=== PATIENT | female | born 1955 | race Caucasian/White ===

== ENCOUNTER → 2017-02-10 | Outpatient (CLI) | payer OTHER ==
[~2017-02-10] MED LIST: AUGMENTIN 875 M1 TA1 PO; CLARITIN10 MG PO; FLONASE0.05 MG/AC NS; KETOROLAC10 MG PO; NKHM; Orphenadrine C100 MG PO; PREDNISONE20 MG PO; PROAIR HFA0.09 MG/AC IH; VOLTAREN50 M1 PO
== END | disposition home or self-care (01) ==
LOC: MAMMO 12:56
DX: Z12.31 Encounter for screening mammogram for malignant neoplasm of breast (principal)

== ENCOUNTER 2018-07-20 03:52 | Emergency (ER) | payer OTHER ==
[~2018-07-20] VITALS: Ht 179 cm; Wt 76.2 kg
[~2018-07-20 03:52] MED LIST changes: +IBU800 MG PO
[2018-07-20 03:57] VITALS: BP 163/101
[2018-07-20] MEDS ORDERED: PREDNISONE10 MG PO (05:30)
[2018-07-20] MEDS ORDERED: Orphenadrine C100 MG PO (05:30)
[2018-07-20 05:48] LABS: BILIRUBIN NEGATIVE (NEGATIVE); BLOOD NEGATIVE (NEGATIVE); CLARITY SL CLOUDY (CLEAR); COLOR YELLOW (YELLOW); GLUCOSE NEGATIVE (NEGATIVE); KETONE NEGATIVE (NEGATIVE); LEUKO ESTERASE 1+ (NEGATIVE); NITRITE NEGATIVE (NEGATIVE); SPECIFIC GRAVITY >= 1.030 (1.005-1.030); UROBILINOGEN 0.2 E.U./dl (0.2-1.0)
[2018-07-20 05:57] LABS: BACTERIA TRACE; EPITHELIAL CELLS 15-20; WBC 0-2 wbc/hpf (0-5)
== END 2018-07-20 05:40 | disposition home or self-care (01) ==
LOC: ED 03:52
PROVIDERS: Emergency Medicine Emergency Medical Services
DX: M54.41 Lumbago with sciatica, right side (principal); Z90.710 Acquired absence of both cervix and uterus; X50.1XXA Overexertion from prolonged static or awkward postures, initial encounter; Y93.89 Activity, other specified; Y92.89 Other specified places as the place of occurrence of the external cause; Y99.8 Other external cause status

== ENCOUNTER → 2018-08-20 | Outpatient (CLI) | payer OTHER ==
[~2018-08-20] MED LIST changes: +PREDNISONE10 MG PO; +SEPTDS PO
== END | disposition home or self-care (01) ==
LOC: MRI 07:34
DX: M47.817 Spondylosis without myelopathy or radiculopathy, lumbosacral region (principal)

== ENCOUNTER 2018-10-08 02:01 | Emergency (ER) | payer OTHER ==
[~2018-10-08] VITALS: Wt 76.2 kg
[~2018-10-08 02:01] MED LIST changes: -SEPTDS PO
[2018-10-08 02:02] VITALS: BP 157/95
[2018-10-08 02:15] LABS: BILIRUBIN NEGATIVE (NEGATIVE); BLOOD NEGATIVE (NEGATIVE); CLARITY SL CLOUDY (CLEAR); COLOR YELLOW (YELLOW); GLUCOSE NEGATIVE (NEGATIVE); KETONE NEGATIVE (NEGATIVE); LEUKO ESTERASE NEGATIVE (NEGATIVE); NITRITE NEGATIVE (NEGATIVE); PH 5.5 (5.0-9.0); SPECIFIC GRAVITY >= 1.030 (1.005-1.030); UROBILINOGEN 0.2 E.U./dl (0.2-1.0)
[2018-10-08 02:32] LABS: BACTERIA 1+; EPITHELIAL CELLS 30-35
[2018-10-08] MEDS ORDERED: SEPTDS PO (02:38)
== END 2018-10-08 02:45 | disposition home or self-care (01) ==
LOC: ED 02:01
PROVIDERS: Emergency Medicine
DX: N30.90 Cystitis, unspecified without hematuria (principal); Z79.899 Other long term (current) drug therapy; Z90.710 Acquired absence of both cervix and uterus; Z90.49 Acquired absence of other specified parts of digestive tract

== ENCOUNTER 2019-10-14 23:47 | Inpatient (IN) | payer MEDICARE ==
[~2019-10-14] VITALS: Ht 180.3 cm; Wt 79.1 kg
[~2019-10-14 23:47] MED LIST changes: +SEPTDS PO
[2019-10-14 23:50] VITALS: BP 205/114
[2019-10-15] VITALS (8 sets, daily range): BP systolic 115–168; BP diastolic 72–96
--- NOTE | 2019-10-15 01:35 | NUR ---
A 64, admitted to [facility], under the services of NENO Ren DO with a diagnosis of HYPERTENSIVE CRISIS, HYPERVENTILATION, CHEST PAIN. Chief complaint is SHORTNESS OF BREATH. Patient arrived via stretcher from ER. Monitor applied. Initial assessment completed. Vital signs taken and recorded. NENO REN DO notified of admission to the unit. Orders received. See assessment for past medical history, medications and allergies. Patient and/or family oriented to unit. [facility] visitation policy reviewed. Clothing/patient valuable form completed. MAHSA BARAHONA
--- NOTE | 2019-10-15 02:02 | NUR ---
MED REC UP TO DATE PER PT RECALL. NO HOME MEDS PER PT.
--- NOTE | 2019-10-15 02:43 | NUR ---
'S ANSWERING SERVICE CALLED REGARDING CONSULT. INFORMATION, INCLUDING CALL BACK NUMBER, LEFT WITH SENIOR STAFF ACCOUNTANT.
[2019-10-15 06:28] LABS: BASO # 0.1 10*3/uL (0.0-0.1); BASO % 0.9 % (0.0-1.0); EOS # 0.1 10*3/uL (0.0-0.4); EOS % 1.6 % (1.0-4.0); HEMATOCRIT 44.3 % (37.0-47.0); LYMPH # 2.2 10*3/uL (1.3-4.4); LYMPH % 38.9 % (27.0-41.0); MEAN CELL VOLUME 96.5 fl (81.0-99.0); MEAN CORPUSCULAR HGB 31.8 pg (27.0-31.0); MEAN PLATELET VOLUME 10.9 fl (9.6-12.3); MONO # 0.5 10*3/uL (0.1-1.0); MONO % 9.2 % (3.0-9.0); NEUT # 2.8 10*3/uL (2.3-7.9); NEUT % 49.2 % (47.0-73.0); PLATELET COUNT AUTOMATED 255 10*3/uL (130-400); RED BLOOD COUNT 4.59 10*6/uL (4.10-5.10); RED CELL DISTRI WIDTH 12.2 % (0-14.5); WHITE BLOOD COUNT 5.7 10*3/uL (4.8-10.8)
[2019-10-15 06:56] LABS: BUN 14 mg/dl (7-24); CHLORIDE 107 mmol/L (98-107); CHOLESTEROL 191 mg/dL (<200); CREATININE 0.77 mg/dL (0.55-1.02); FREE T4 0.94 ng/dl (0.76-1.46); HDL CHOLESTEROL 66 mg/dl (40-60); LDL CHOLESTEROL 109 mg/dL (9-159); POTASSIUM 3.8 mmol/L (3.5-5.1); SODIUM 139 mmol/L (136-145); TRIGLYCERIDES 81 mg/dl (<150); VLDL CHOLESTEROL 16 mg/dL (6-40)
[2019-10-15 07:29] LABS: ALBUMIN 3.6 gm/dl (3.1-4.5); ALKALINE PHOSPHATASE 139 U/L (45-117); BUN 16 mg/dl (7-24); CHLORIDE 107 mmol/L (98-107); CREATININE 0.81 mg/dL (0.55-1.02); POTASSIUM 3.8 mmol/L (3.5-5.1); SGOT/AST 23 IU/L (3-35); SGPT/ALT 35 U/L (12-78); SODIUM 142 mmol/L (136-145); TOTAL PROTEIN 6.7 gm/dL (6.4-8.2); TROPONIN I < 0.015 ng/ml (<0.045)
[2019-10-15 07:35] LABS: BASO # 0.1 10*3/uL (0.0-0.1); BASO % 0.9 % (0.0-1.0); EOS # 0.1 10*3/uL (0.0-0.4); EOS % 1.2 % (1.0-4.0); HEMATOCRIT 44.9 % (37.0-47.0); LYMPH % 35.2 % (27.0-41.0); MEAN CELL VOLUME 94.1 fl (81.0-99.0); MEAN CORPUSCULAR HGB 32.1 pg (27.0-31.0); MEAN CORPUSCULAR HGB CONC 34.1 g/dl (33.0-37.0); MEAN PLATELET VOLUME 10.8 fl (9.6-12.3); MONO # 0.6 10*3/uL (0.1-1.0); MONO % 11.2 % (3.0-9.0); NEUT # 2.9 10*3/uL (2.3-7.9); NEUT % 51.3 % (47.0-73.0); PLATELET COUNT AUTOMATED 271 10*3/uL (130-400); RED BLOOD COUNT 4.77 10*6/uL (4.10-5.10); WHITE BLOOD COUNT 5.6 10*3/uL (4.8-10.8)
[2019-10-15 07:53] LABS: ACT PARTIAL THROMBO TIME 27.2 SECONDS (20.0-32.1); INTERNATIONAL NORM RATIO 0.9 (2.0-3.5)
--- NOTE | 2019-10-15 08:45 | NUR ---
PT LYING IN BED GETTING ECHO DONE. NO C/O AT THIS TIME. CALL LIGHT IN REACH. SEE SHIFT ASSESSMENT.
--- NOTE | 2019-10-15 09:02 | NUR ---
SPOKE WITH DR. GIVENS CANCELED STRESS TEST.
--- NOTE | 2019-10-15 09:50 | NUR ---
SITTING UP IN BED. DENIES CHEST PAIN OR SHORTNESS OF BREATH, TOLERATED ROUTINE MED WITH NO PROBLEM. CALL LIGHT IN REACH.
--- NOTE | 2019-10-15 10:00 | NUR ---
SPOKE WITH DR. CRISTEL BARBER TO PUT ECHO BACK IN AWARE PT ALREADY HAD IT.
--- NOTE | 2019-10-15 10:49 | NUR ---
DR. GIVENS ON THE FLOOR TO FILL PT PAPERS OUT FOR FMLA.
--- NOTE | 2019-10-15 12:00 | NUR ---
Tools Programmer in to talk to patient. Patient states lives at home with . There are no steps in the home. Physician: none at present [facility]acy: [facility] Home health services: none Patient's level of ADLs: INDEPENDENT Patient has working utilities: all working DME: none Follow-up physician's appointment after d/c: will be made by hospitalist nurse director upon discharge Does patient want to access PORTAL?: no Discharge plan discussed with patient, she lives at home with she is independent in adls and ambulation, works and drives, she will return home when medically stable and denies any home needs. DEWAYNE GRANT
[2019-10-15 13:23] LABS: VITAMIN D, 25-HYDROXY 28.4 ng/mL (30-100)
[2019-10-15] MEDS ORDERED: ATIVAN1 MG PO (15:56)
[2019-10-15] MEDS ORDERED: LISINOPRIL10 M1 PO (15:56)
[2019-10-15] MEDS ORDERED: VITAMIN D325 MCG PO (16:00)
--- NOTE | 2019-10-15 16:09 | NUR ---
Discharge instructions reviewed with patient/family. Patient receptive and verbalizes understanding. Follow-up care arranged. Written instructions given to patient/family. HEPLOCK REMOVED 2X2 APPLIED. MONITOR REMOVED. PT AMBULATORY OFF THE FLOOR FOR DISCHARGE. JO-ANN ACEVEOD
== END 2019-10-15 16:09 | disposition home or self-care (01) | DRG 206 ==
LOC: ED 23:47 → EDHOLD 10-15 00:56 → 4NE 10-15 00:56
PROVIDERS: Emergency Medicine; Internal Medicine; ADMIT Internal Medicine
DX: M94.0 Chondrocostal junction syndrome [Tietze] (principal); I16.1 Hypertensive emergency; I24.9 Acute ischemic heart disease, unspecified; R06.4 Hyperventilation; F41.0 Panic disorder [episodic paroxysmal anxiety]; F40.240 Claustrophobia; K21.9 Gastro-esophageal reflux disease without esophagitis; R00.2 Palpitations; Z90.49 Acquired absence of other specified parts of digestive tract; Z90.710 Acquired absence of both cervix and uterus; Z79.891 Long term (current) use of opiate analgesic; Z87.891 Personal history of nicotine dependence; Z80.1 Family history of malignant neoplasm of trachea, bronchus and lung; Z83.3 Family history of diabetes mellitus; Z82.49 Family history of ischemic heart disease and other diseases of the circulatory system; Z79.899 Other long term (current) drug therapy

== ENCOUNTER → 2020-02-13 | Outpatient (CLI) | payer MEDICARE ==
[~2020-02-13] MED LIST changes: +ATIVAN1 MG PO; +LISINOPRIL10 M1 PO; +VITAMIN D325 MCG PO
== END | disposition home or self-care (01) ==
LOC: MRI 12:46
PROVIDERS: ATTEND Psychiatry & Neurology Clinical Neurophysiology
DX: G89.29 Other chronic pain (principal); G62.9 Polyneuropathy, unspecified; R20.2 Paresthesia of skin; M54.5 Low back pain

== ENCOUNTER → 2020-02-14 | Outpatient (CLI) | payer MEDICARE | END | disposition home or self-care (01) | LOC: MRI 00:34 | PROVIDERS: ATTEND Psychiatry & Neurology Clinical Neurophysiology | DX: G62.9 Polyneuropathy, unspecified (principal); R20.2 Paresthesia of skin; M54.5 Low back pain; G89.29 Other chronic pain; R29.898 Other symptoms and signs involving the musculoskeletal system; Z91.81 History of falling ==

== ENCOUNTER → 2020-03-19 | Outpatient (CLI) | payer MEDICARE ==
[2020-03-19 10:44] LABS: ALBUMIN 3.8 gm/dl (3.1-4.5); BUN 13 mg/dl (7-24); CHLORIDE 106 mmol/L (98-107); CREATININE 0.79 mg/dL (0.55-1.02); SODIUM 140 mmol/L (136-145)
== END | disposition home or self-care (01) ==
LOC: LAB 10:11 → MRI 11:00
PROVIDERS: ATTEND Psychiatry & Neurology Clinical Neurophysiology
DX: G60.3 Idiopathic progressive neuropathy (principal); R29.898 Other symptoms and signs involving the musculoskeletal system; R94.131 Abnormal electromyogram [EMG]; R26.2 Difficulty in walking, not elsewhere classified

== ENCOUNTER → 2020-11-23 | Outpatient (CLI) | payer MEDICARE ==
[2020-11-23 13:33] LABS: BASO # 0.1 10*3/uL (0.0-0.1); BASO % 0.8 % (0.0-1.0); EOS # 0.1 10*3/uL (0.0-0.4); EOS % 0.8 % (1.0-4.0); HEMATOCRIT 45.1 % (37.0-47.0); LYMPH # 1.6 10*3/uL (1.3-4.4); LYMPH % 25.4 % (27.0-41.0); MEAN CELL VOLUME 96.6 fl (81.0-99.0); MEAN CORPUSCULAR HGB 31.3 pg (27.0-31.0); MEAN CORPUSCULAR HGB CONC 32.4 g/dl (33.0-37.0); MEAN PLATELET VOLUME 10.6 fl (9.6-12.3); MONO # 0.4 10*3/uL (0.1-1.0); MONO % 7.1 % (3.0-9.0); NEUT # 4.1 10*3/uL (2.3-7.9); NEUT % 65.6 % (47.0-73.0); PLATELET COUNT AUTOMATED 309 10*3/uL (130-400); RED BLOOD COUNT 4.67 10*6/uL (4.10-5.10); WHITE BLOOD COUNT 6.2 10*3/uL (4.8-10.8)
[2020-11-23 14:04] LABS: ALBUMIN 3.4 gm/dl (3.1-4.5); BUN 14 mg/dl (7-24); CHLORIDE 107 mmol/L (98-107); POTASSIUM 3.6 mmol/L (3.5-5.1); SODIUM 142 mmol/L (136-145)
[2020-11-23 14:08] LABS: ALKALINE PHOSPHATASE 128 U/L (45-117); CREATININE 0.75 mg/dL (0.55-1.02); SGOT/AST 18 IU/L (3-35); SGPT/ALT 28 U/L (12-78)
== END | disposition home or self-care (01) ==
LOC: LAB 13:01
PROVIDERS: ATTEND Psychiatry & Neurology Neurology
DX: G12.21 Amyotrophic lateral sclerosis (principal)

== ENCOUNTER → 2020-12-29 | Outpatient (CLI) | payer MEDICARE ==
[~2020-12-29] MED LIST changes: +AUGMENTIN 875875 MG PO; +BACLOFEN5 MG PO; +CIPRO500 MG PO; +COLACE100 MG PO; +DITROPAN XL10 MG PO; +HYDROCODONE-AC1 EAC1 PO; +Ipratropium Brom3 ML INH; +NORVASC2.5 MG PO; +RILUTEK50 M1 PO
[2020-12-29 14:32] LABS: BASO # 0.1 10*3/uL (0.0-0.1); EOS % 0.5 % (1.0-4.0); HEMATOCRIT 47.8 % (37.0-47.0); LYMPH # 1.4 10*3/uL (1.3-4.4); LYMPH % 23.1 % (27.0-41.0); MEAN CELL VOLUME 94.7 fl (81.0-99.0); MEAN CORPUSCULAR HGB 30.7 pg (27.0-31.0); MEAN CORPUSCULAR HGB CONC 32.4 g/dl (33.0-37.0); MONO # 0.5 10*3/uL (0.1-1.0); MONO % 7.5 % (3.0-9.0); NEUT # 4.1 10*3/uL (2.3-7.9); NEUT % 67.7 % (47.0-73.0); PLATELET COUNT AUTOMATED 338 10*3/uL (130-400); RED BLOOD COUNT 5.05 10*6/uL (4.10-5.10); RED CELL DISTRI WIDTH 12.7 % (0-14.5)
[2020-12-29 14:59] LABS: ALBUMIN 3.9 gm/dl (3.1-4.5); BUN 14 mg/dl (7-24); CHLORIDE 107 mmol/L (98-107); SODIUM 139 mmol/L (136-145)
[2020-12-29 15:04] LABS: ALKALINE PHOSPHATASE 117 U/L (45-117); CREATININE 0.57 mg/dL (0.55-1.02); SGOT/AST 18 IU/L (3-35); SGPT/ALT 30 U/L (12-78); TOTAL PROTEIN 7.2 gm/dL (6.4-8.2)
== END | disposition home or self-care (01) ==
LOC: LAB 01:38
PROVIDERS: ATTEND Psychiatry & Neurology Neurology
DX: G12.21 Amyotrophic lateral sclerosis (principal)

== ENCOUNTER 2021-01-14 23:02 | Inpatient (IN) | payer MEDICARE ==
[~2021-01-14] VITALS: Ht 177.8 cm; Wt 75.5 kg
[~2021-01-14 23:02] MED LIST changes: -AUGMENTIN 875875 MG PO; -BACLOFEN5 MG PO; -CIPRO500 MG PO; -COLACE100 MG PO; -DITROPAN XL10 MG PO; -HYDROCODONE-AC1 EAC1 PO; -Ipratropium Brom3 ML INH; -NORVASC2.5 MG PO; -RILUTEK50 M1 PO
[2021-01-14 23:07] VITALS: BP 165/98
[2021-01-14 23:25] LABS: BASO % 0.4 % (0.0-1.0); EOS % 0.4 % (1.0-4.0); HEMATOCRIT 45.8 % (37.0-47.0); LYMPH # 1.6 10*3/uL (1.3-4.4); LYMPH % 17.2 % (27.0-41.0); MEAN CELL VOLUME 94.6 fl (81.0-99.0); MEAN CORPUSCULAR HGB 31.2 pg (27.0-31.0); MEAN PLATELET VOLUME 10.7 fl (9.6-12.3); MONO # 0.8 10*3/uL (0.1-1.0); NEUT % 73.8 % (47.0-73.0); PLATELET COUNT AUTOMATED 298 10*3/uL (130-400); RED BLOOD COUNT 4.84 10*6/uL (4.10-5.10); WHITE BLOOD COUNT 9.5 10*3/uL (4.8-10.8)
[2021-01-14 23:46] LABS: ALBUMIN 3.7 gm/dl (3.1-4.5); ALKALINE PHOSPHATASE 120 U/L (45-117); BUN 10 mg/dl (7-24); CHLORIDE 106 mmol/L (98-107); CREATININE 0.66 mg/dL (0.55-1.02); POTASSIUM 3.5 mmol/L (3.5-5.1); SGOT/AST 16 IU/L (3-35); SGPT/ALT 30 U/L (12-78); SODIUM 140 mmol/L (136-145)
[2021-01-14 23:50] LABS: TROPONIN I < 0.015 ng/ml (<0.045)
[2021-01-15 00:23] VITALS: BP 138/80
[2021-01-15 00:40] VITALS: BP 140/80
[2021-01-15] MEDS ORDERED: BACLOFEN5 MG PO (01:08)
[2021-01-15] MEDS ORDERED: RILUTEK50 M1 PO (01:08)
[2021-01-15] MEDS ORDERED: DITROPAN XL10 MG PO (01:09)
[2021-01-15] MEDS ORDERED: NORVASC2.5 MG PO (01:09)
[2021-01-15] MEDS ORDERED: COLACE100 MG PO (01:10)
[2021-01-15] MEDS ORDERED: Ipratropium Brom3 ML INH (01:13)
[2021-01-15 06:19] LABS: BASO # 0.1 10*3/uL (0.0-0.1); BASO % 0.9 % (0.0-1.0); EOS % 0.6 % (1.0-4.0); HEMATOCRIT 44.1 % (37.0-47.0); LYMPH # 1.4 10*3/uL (1.3-4.4); LYMPH % 20.4 % (27.0-41.0); MEAN CELL VOLUME 97.1 fl (81.0-99.0); MEAN CORPUSCULAR HGB 31.1 pg (27.0-31.0); MEAN PLATELET VOLUME 10.8 fl (9.6-12.3); MONO # 0.6 10*3/uL (0.1-1.0); MONO % 8.3 % (3.0-9.0); NEUT # 4.6 10*3/uL (2.3-7.9); NEUT % 69.5 % (47.0-73.0); PLATELET COUNT AUTOMATED 264 10*3/uL (130-400); RED BLOOD COUNT 4.54 10*6/uL (4.10-5.10); RED CELL DISTRI WIDTH 12.9 % (0-14.5); WHITE BLOOD COUNT 6.7 10*3/uL (4.8-10.8)
[2021-01-15 06:37] LABS: ALBUMIN 3.4 gm/dl (3.1-4.5); ALKALINE PHOSPHATASE 109 U/L (45-117); BUN 10 mg/dl (7-24); CHLORIDE 108 mmol/L (98-107); FREE T4 1.08 ng/dl (0.76-1.46); POTASSIUM 3.8 mmol/L (3.5-5.1); SGOT/AST 18 IU/L (3-35); SGPT/ALT 28 U/L (12-78); SODIUM 141 mmol/L (136-145); TOTAL PROTEIN 6.5 gm/dL (6.4-8.2)
[2021-01-15 08:00] VITALS: BP 155/97
[2021-01-15 11:15] LABS: ABG BASE EXCESS 1.8 mmol/L (-2.0-2.0); ARTERIAL BLOOD GAS PH 7.452 (7.35-7.45); ARTERIAL BLOOD GAS PO2 88.1 (80-90)
[2021-01-15 12:00] VITALS: BP 132/78
[2021-01-15 14:18] VITALS: BP 148/89
[2021-01-15 20:00] VITALS: BP 128/74
[2021-01-16] VITALS: BP 119/74
[2021-01-16 06:01] LABS: BASO # 0.1 10*3/uL (0.0-0.1); BASO % 1.2 % (0.0-1.0); EOS # 0.1 10*3/uL (0.0-0.4); EOS % 1.4 % (1.0-4.0); HEMATOCRIT 44.4 % (37.0-47.0); LYMPH # 1.3 10*3/uL (1.3-4.4); LYMPH % 23.6 % (27.0-41.0); MEAN CELL VOLUME 97.8 fl (81.0-99.0); MEAN CORPUSCULAR HGB 30.8 pg (27.0-31.0); MEAN CORPUSCULAR HGB CONC 31.5 g/dl (33.0-37.0); MEAN PLATELET VOLUME 11.2 fl (9.6-12.3); MONO # 0.5 10*3/uL (0.1-1.0); MONO % 8.4 % (3.0-9.0); NEUT # 3.7 10*3/uL (2.3-7.9); PLATELET COUNT AUTOMATED 275 10*3/uL (130-400); RED BLOOD COUNT 4.54 10*6/uL (4.10-5.10); WHITE BLOOD COUNT 5.7 10*3/uL (4.8-10.8)
[2021-01-16 06:13] LABS: ALBUMIN 3.3 gm/dl (3.1-4.5); ALKALINE PHOSPHATASE 108 U/L (45-117); BUN 13 mg/dl (7-24); CHLORIDE 107 mmol/L (98-107); CREATININE 0.57 mg/dL (0.55-1.02); POTASSIUM 3.9 mmol/L (3.5-5.1); SGOT/AST 17 IU/L (3-35); SGPT/ALT 30 U/L (12-78); SODIUM 142 mmol/L (136-145); TOTAL PROTEIN 6.2 gm/dL (6.4-8.2)
[2021-01-16 08:00] VITALS: BP 109/64
[2021-01-16 12:00] VITALS: BP 131/84
[2021-01-16 16:00] VITALS: BP 125/88
[2021-01-16 18:39] LABS: BILIRUBIN Negative (Negative); BLOOD Negative (Negative); CLARITY Cloudy (Clear); COLOR Yellow (Yellow); GLUCOSE Negative (Negative); KETONE Negative (Negative); LEUKO ESTERASE 3+ (Negative); NITRITE Negative (Negative); UROBILINOGEN 0.2 E.U./dl (0.0-1.0)
[2021-01-16 18:48] LABS: BACTERIA 2+; EPITHELIAL CELLS 16-20; WBC 16-20 wbc/hpf (0-5)
[2021-01-16 20:00] VITALS: BP 145/87
[2021-01-17] VITALS: BP 132/71
[2021-01-17 08:00] VITALS: BP 147/95
[2021-01-17 12:00] VITALS: BP 142/97
[2021-01-17 16:00] VITALS: BP 128/82
[2021-01-17 20:00] VITALS: BP 132/90
[2021-01-18] VITALS: BP 141/78
[2021-01-18 08:00] VITALS: BP 133/86
[2021-01-18 12:00] VITALS: BP 132/81
[2021-01-18 16:00] VITALS: BP 145/75
[2021-01-18 20:00] VITALS: BP 142/76
[2021-01-19 02:19] VITALS: BP 135/79
[2021-01-19 05:32] LABS: BUN 19 mg/dl (7-24); CHLORIDE 106 mmol/L (98-107); CREATININE 0.62 mg/dL (0.55-1.02); POTASSIUM 4.4 mmol/L (3.5-5.1); SODIUM 141 mmol/L (136-145)
[2021-01-19 06:07] LABS: BASO # 0.1 10*3/uL (0.0-0.1); BASO % 1.3 % (0.0-1.0); EOS # 0.2 10*3/uL (0.0-0.4); EOS % 2.9 % (1.0-4.0); HEMATOCRIT 42.5 % (37.0-47.0); LYMPH # 1.3 10*3/uL (1.3-4.4); LYMPH % 23.2 % (27.0-41.0); MEAN CELL VOLUME 98.2 fl (81.0-99.0); MEAN CORPUSCULAR HGB 31.2 pg (27.0-31.0); MEAN CORPUSCULAR HGB CONC 31.8 g/dl (33.0-37.0); MEAN PLATELET VOLUME 11.5 fl (9.6-12.3); MONO # 0.6 10*3/uL (0.1-1.0); MONO % 10.5 % (3.0-9.0); NEUT # 3.4 10*3/uL (2.3-7.9); NEUT % 61.9 % (47.0-73.0); PLATELET COUNT AUTOMATED 267 10*3/uL (130-400); RED BLOOD COUNT 4.33 10*6/uL (4.10-5.10); RED CELL DISTRI WIDTH 12.7 % (0-14.5); WHITE BLOOD COUNT 5.4 10*3/uL (4.8-10.8)
[2021-01-19 08:00] VITALS: BP 130/70
[2021-01-19] MEDS ORDERED: AUGMENTIN 875875 MG PO (12:27)
[2021-01-19] MEDS ORDERED: CIPRO500 MG PO (12:27)
[2021-01-19 16:00] VITALS: BP 138/80
[2021-01-19 20:00] VITALS: BP 133/74
[2021-01-20] VITALS: BP 134/79
== END 2021-01-20 04:48 | disposition short-term general hospital (02) | DRG 189 ==
LOC: ED 23:02 → 4E 01-15 00:07 → EDHOLD 01-15 00:07 → 4E 01-15 00:27
PROVIDERS: Emergency Medicine; Internal Medicine; Internal Medicine Critical Care Medicine; Social Worker Clinical; Student in an Organized Health Care Education/Training Program; ADMIT Student in an Organized Health Care Education/Training Program; ATTEND Student in an Organized Health Care Education/Training Program
PROC: 5A09357 Assistance with Respiratory Ventilation, Less than 24 Consecutive Hours, Continuous Positive Airway Pressure (ICD-10-PCS; principal; 2021-01-15)
DX: J96.01 Acute respiratory failure with hypoxia (principal); N39.0 Urinary tract infection, site not specified; G12.21 Amyotrophic lateral sclerosis; M53.86 Other specified dorsopathies, lumbar region; N32.81 Overactive bladder; R73.9 Hyperglycemia, unspecified; I10 Essential (primary) hypertension; E55.9 Vitamin D deficiency, unspecified; J44.9 Chronic obstructive pulmonary disease, unspecified; F41.1 Generalized anxiety disorder; B96.89 Other specified bacterial agents as the cause of diseases classified elsewhere; B96.5 Pseudomonas (aeruginosa) (mallei) (pseudomallei) as the cause of diseases classified elsewhere; Z90.710 Acquired absence of both cervix and uterus; Z90.49 Acquired absence of other specified parts of digestive tract; Z87.891 Personal history of nicotine dependence; Z79.899 Other long term (current) drug therapy; Z79.51 Long term (current) use of inhaled steroids

== ENCOUNTER 2021-02-15 13:11 | Emergency (ER) | payer MEDICARE ==
[~2021-02-15] VITALS: Ht 177.8 cm; Wt 74.8 kg
[~2021-02-15 13:11] MED LIST changes: +AUGMENTIN 875875 MG PO; +BACLOFEN5 MG PO; +CIPRO500 MG PO; +COLACE100 MG PO; +DITROPAN XL10 MG PO; +Ipratropium Brom3 ML INH; +NORVASC2.5 MG PO; +RILUTEK50 M1 PO
[2021-02-15 14:24] LABS: BILIRUBIN Negative (Negative); BLOOD Trace-Intact (Negative); CLARITY Cloudy (Clear); COLOR Yellow (Yellow); GLUCOSE Negative (Negative); KETONE Negative (Negative); LEUKO ESTERASE 2+ (Negative); NITRITE Negative (Negative); SPECIFIC GRAVITY 1.015 (1.001-1.030)
[2021-02-15 14:38] LABS: BACTERIA 1+; MUCOUS 1+; WBC 21-30 wbc/hpf (0-5); YEAST 3+
[2021-02-15 15:30] VITALS: BP 131/74
[2021-02-15] MEDS ORDERED: HYDROCODONE-AC1 EAC1 PO (16:28)
[2021-02-15] MEDS ORDERED: CIPRO500 MG PO (16:28)
== END 2021-02-15 16:52 | disposition home or self-care (01) ==
LOC: ED 13:11
PROVIDERS: Physician Assistant
DX: N39.0 Urinary tract infection, site not specified (principal); Z79.899 Other long term (current) drug therapy; Z87.891 Personal history of nicotine dependence

== ENCOUNTER → 2021-02-19 | Outpatient (CLI) | payer MEDICARE ==
[~2021-02-19] MED LIST changes: +HYDROCODONE-AC1 EAC1 PO
== END | disposition home or self-care (01) ==
LOC: RAD/SH 02-12 10:00
PROVIDERS: ATTEND Psychiatry & Neurology Neurology
DX: R13.12 Dysphagia, oropharyngeal phase (principal); G12.21 Amyotrophic lateral sclerosis

== ENCOUNTER 2021-02-23 17:07 | Emergency (ER) | payer MEDICARE ==
[2021-02-23 17:39] VITALS: BP 135/86
[2021-02-23 23:01] LABS: BILIRUBIN Negative (Negative); BLOOD Negative (Negative); CLARITY Cloudy (Clear); COLOR Yellow (Yellow); GLUCOSE Negative (Negative); KETONE Trace (Negative); LEUKO ESTERASE 2+ (Negative); NITRITE Negative (Negative); SPECIFIC GRAVITY 1.015 (1.001-1.030)
[2021-02-23 23:07] LABS: BACTERIA 4+; WBC 31-40 wbc/hpf (0-5)
[2021-02-23] MEDS ORDERED: SEPTDS PO (23:40)
== END 2021-02-23 23:51 | disposition home or self-care (01) ==
LOC: ED 17:07
PROVIDERS: Internal Medicine
DX: N39.0 Urinary tract infection, site not specified (principal)

== ENCOUNTER 2021-05-10 13:54 | Inpatient (IN) | payer MEDICARE ==
[~2021-05-10] VITALS: Ht 177.8 cm; Wt 63.0 kg
[~2021-05-10 13:54] MED LIST changes: +COLACE100 MG PEG; -COLACE100 MG PO; +NORVASC2.5 MG PEG; -NORVASC2.5 MG PO
[2021-05-10 14:32] LABS: BASO % 0.5 % (0.0-1.0); EOS # 0.1 10*3/uL (0.0-0.4); EOS % 1.1 % (1.0-4.0); HEMATOCRIT 44.8 % (37.0-47.0); LYMPH % 11.7 % (27.0-41.0); MEAN CORPUSCULAR HGB 29.5 pg (27.0-31.0); MEAN CORPUSCULAR HGB CONC 30.1 g/dl (33.0-37.0); MEAN PLATELET VOLUME 10.9 fl (9.6-12.3); MONO # 0.7 10*3/uL (0.1-1.0); MONO % 8.2 % (3.0-9.0); NEUT # 6.5 10*3/uL (2.3-7.9); NEUT % 78.3 % (47.0-73.0); PLATELET COUNT AUTOMATED 377 10*3/uL (130-400); RED BLOOD COUNT 4.57 10*6/uL (4.10-5.10); RED CELL DISTRI WIDTH 13.1 % (0-14.5); WHITE BLOOD COUNT 8.3 10*3/uL (4.8-10.8)
[2021-05-10 14:48] VITALS: BP 132/81
[2021-05-10 14:55] LABS: ALBUMIN 2.7 gm/dl (3.1-4.5); ALKALINE PHOSPHATASE 132 U/L (45-117); BUN 17 mg/dl (7-24); CHLORIDE 101 mmol/L (98-107); CREATININE 0.29 mg/dL (0.55-1.02); POTASSIUM 4.3 mmol/L (3.5-5.1); SGOT/AST 16 IU/L (3-35); SGPT/ALT 27 U/L (12-78); SODIUM 140 mmol/L (136-145)
[2021-05-10 20:00] VITALS: BP 127/73
[2021-05-10] MEDS ORDERED: RILUTEK50 M1 PEG (21:11)
[2021-05-10] MEDS ORDERED: Duragesic 25 M25 MCG TD (21:13)
[2021-05-10] MEDS ORDERED: ACETAMINOPHEN12.5 ML PO (21:14)
[2021-05-10] MEDS ORDERED: REMERON15 M2 PEG (21:15)
[2021-05-10] MEDS ORDERED: PROTONIX20 MG PEG (21:15)
[2021-05-10] MEDS ORDERED: NEURONTIN300 MG PEG (21:17)
[2021-05-10] MEDS ORDERED: MAGNESIUM400 M1 PEG (21:49)
[2021-05-10] MEDS ORDERED: VITAMIN D325 MC1 PEG (21:50)
[2021-05-10] MEDS ORDERED: TIZANIDINE2 MG PEG (21:52)
[2021-05-10] MEDS ORDERED: BACLOFEN5 MG PEG ×2 (21:53)
[2021-05-10] MEDS ORDERED: PROVENTIL HFA6.7 GM INH (21:57)
[2021-05-10] MEDS ORDERED: FISH OIL 1,2001 EAC6 PEG (21:58)
[2021-05-11] VITALS: BP 137/70
[2021-05-11 00:36] LABS: BILIRUBIN Negative (Negative); BLOOD Trace-Intact (Negative); CLARITY Turbid (Clear); COLOR Yellow (Yellow); GLUCOSE Negative (Negative); KETONE Trace (Negative); LEUKO ESTERASE 3+ (Negative); NITRITE Positive (Negative); SPECIFIC GRAVITY 1.025 (1.001-1.030); UROBILINOGEN 0.2 E.U./dl (0.0-1.0)
[2021-05-11 01:32] LABS: WBC 41-50 wbc/hpf (0-5)
[2021-05-11 01:33] LABS: BACTERIA 2+
[2021-05-11 06:34] LABS: BASO # 0.1 10*3/uL (0.0-0.1); BASO % 1.1 % (0.0-1.0); EOS # 0.1 10*3/uL (0.0-0.4); EOS % 1.5 % (1.0-4.0); HEMATOCRIT 44.5 % (37.0-47.0); LYMPH # 1.3 10*3/uL (1.3-4.4); LYMPH % 17.3 % (27.0-41.0); MEAN CELL VOLUME 98.7 fl (81.0-99.0); MEAN CORPUSCULAR HGB 29.9 pg (27.0-31.0); MEAN CORPUSCULAR HGB CONC 30.3 g/dl (33.0-37.0); MEAN PLATELET VOLUME 11.1 fl (9.6-12.3); MONO # 0.8 10*3/uL (0.1-1.0); MONO % 10.3 % (3.0-9.0); NEUT # 5.1 10*3/uL (2.3-7.9); NEUT % 69.7 % (47.0-73.0); PLATELET COUNT AUTOMATED 361 10*3/uL (130-400); RED BLOOD COUNT 4.51 10*6/uL (4.10-5.10); WHITE BLOOD COUNT 7.3 10*3/uL (4.8-10.8)
[2021-05-11 06:49] LABS: BUN 17 mg/dl (7-24); CHLORIDE 103 mmol/L (98-107); CREATININE 0.29 mg/dL (0.55-1.02); POTASSIUM 3.8 mmol/L (3.5-5.1); SODIUM 141 mmol/L (136-145)
[2021-05-11 08:00] VITALS: BP 115/72
[2021-05-11 12:40] VITALS: BP 121/73
[2021-05-11 16:49] VITALS: BP 117/84
[2021-05-11 20:00] VITALS: BP 127/82
[2021-05-12] VITALS: BP 122/70
[2021-05-12 06:46] LABS: BUN 18 mg/dl (7-24); CHLORIDE 105 mmol/L (98-107); CREATININE 0.29 mg/dL (0.55-1.02); SODIUM 144 mmol/L (136-145)
[2021-05-12 07:53] VITALS: BP 113/61
[2021-05-12 12:00] VITALS: BP 116/74
[2021-05-12 16:00] VITALS: BP 124/78
[2021-05-12 20:00] VITALS: BP 122/64
[2021-05-13] VITALS: BP 134/69
[2021-05-13 08:00] VITALS: BP 105/69
[2021-05-13 12:00] VITALS: BP 108/66
[2021-05-13] MEDS ORDERED: NEURONTIN300 MG PEG (14:08)
[2021-05-13] MEDS ORDERED: VIBRAMYCIN25 MG/5 ML PEG (14:08)
[2021-05-13] MEDS ORDERED: Duragesic 25 M25 MCG TD (14:08)
[2021-05-13] MEDS ORDERED: ACETAMINOPHEN12.5 ML PO (14:13)
[2021-05-15] MEDS ORDERED: YUPELRI175 MCG/3 INH (06:53)
[2021-05-15] MEDS ORDERED: BACLOFEN5 MG PEG (06:55)
[2021-05-19] MEDS ORDERED: LEVOFLOXACIN750 M2 PO (11:25)
== END 2021-05-13 13:15 | DRG 177 ==
LOC: ED 13:54 → 5E 14:41 → EDHOLD 14:41 → 5E 17:05
PROVIDERS: Family Medicine; Student in an Organized Health Care Education/Training Program; ADMIT Internal Medicine; ATTEND Internal Medicine
PROC: BD1BYZZ Fluoroscopy of Mouth/Oropharynx using Other Contrast (ICD-10-PCS; principal; 2021-05-11)
DX: J69.0 Pneumonitis due to inhalation of food and vomit (principal); E43 Unspecified severe protein-calorie malnutrition; G12.21 Amyotrophic lateral sclerosis; N39.0 Urinary tract infection, site not specified; J98.11 Atelectasis; Z68.1 Body mass index [BMI] 19.9 or less, adult; Z20.822 Contact with and (suspected) exposure to COVID-19; R73.9 Hyperglycemia, unspecified; I10 Essential (primary) hypertension; F41.9 Anxiety disorder, unspecified; R13.19 Other dysphagia; E55.9 Vitamin D deficiency, unspecified; J41.0 Simple chronic bronchitis; F19.10 Other psychoactive substance abuse, uncomplicated; Z97.8 Presence of other specified devices; Z93.59 Other cystostomy status; Z90.49 Acquired absence of other specified parts of digestive tract; Z90.710 Acquired absence of both cervix and uterus; Z80.1 Family history of malignant neoplasm of trachea, bronchus and lung; Z82.49 Family history of ischemic heart disease and other diseases of the circulatory system; Z83.3 Family history of diabetes mellitus

== ENCOUNTER 2021-06-06 20:54 | Inpatient (IN) | payer MEDICARE ==
[~2021-06-06] VITALS: Ht 165.1 cm; Wt 68.0 kg
[~2021-06-06 20:54] MED LIST changes: +ACETAMINOPHEN12.5 ML PO; +BACLOFEN5 MG PEG; +Duragesic 25 M25 MCG TD; +FISH OIL 1,2001 EAC6 PEG; +LEVOFLOXACIN750 M2 PO; +MAGNESIUM400 M1 PEG; +NEURONTIN300 MG PEG; +PROTONIX20 MG PEG; +PROVENTIL HFA6.7 GM INH; +REMERON15 M2 PEG; +RILUTEK50 M1 PEG; +TIZANIDINE2 MG PEG; +VIBRAMYCIN25 MG/5 ML PEG; +VITAMIN D325 MC1 PEG; +YUPELRI175 MCG/3 INH
[2021-06-06 21:04] VITALS: BP 158/115
[2021-06-06 21:15] LABS: BASO % 0.4 % (0.0-1.0); LYMPH # 1.9 10*3/uL (1.3-4.4); LYMPH % 16.7 % (27.0-41.0); MEAN CELL VOLUME 99.6 fl (81.0-99.0); MEAN CORPUSCULAR HGB 29.7 pg (27.0-31.0); MEAN CORPUSCULAR HGB CONC 29.8 g/dl (33.0-37.0); MONO # 0.7 10*3/uL (0.1-1.0); MONO % 6.5 % (3.0-9.0); NEUT # 8.6 10*3/uL (2.3-7.9); NEUT % 76.1 % (47.0-73.0); PLATELET COUNT AUTOMATED 398 10*3/uL (130-400); RED BLOOD COUNT 4.72 10*6/uL (4.10-5.10); RED CELL DISTRI WIDTH 13.6 % (0-14.5); WHITE BLOOD COUNT 11.2 10*3/uL (4.8-10.8)
[2021-06-06 21:30] LABS: ALKALINE PHOSPHATASE 136 U/L (45-117); BUN 19 mg/dl (7-24); CHLORIDE 100 mmol/L (98-107); CREATININE 0.29 mg/dL (0.55-1.02); SGOT/AST 29 IU/L (3-35); SGPT/ALT 39 U/L (12-78); SODIUM 138 mmol/L (136-145); TOTAL PROTEIN 7.3 gm/dL (6.4-8.2)
[2021-06-07] VITALS (9 sets, daily range): BP systolic 50–99; BP diastolic 32–76
[2021-06-07 06:20] LABS: BASO % 0.1 % (0.0-1.0); HEMATOCRIT 45.1 % (37.0-47.0); LYMPH # 0.4 10*3/uL (1.3-4.4); LYMPH % 3.6 % (27.0-41.0); MEAN CELL VOLUME 99.6 fl (81.0-99.0); MEAN CORPUSCULAR HGB 29.6 pg (27.0-31.0); MEAN CORPUSCULAR HGB CONC 29.7 g/dl (33.0-37.0); MONO # 0.8 10*3/uL (0.1-1.0); NEUT # 8.8 10*3/uL (2.3-7.9); NEUT % 87.9 % (47.0-73.0); PLATELET COUNT AUTOMATED 313 10*3/uL (130-400); RED BLOOD COUNT 4.53 10*6/uL (4.10-5.10); RED CELL DISTRI WIDTH 13.5 % (0-14.5)
[2021-06-07 06:22] LABS: ALBUMIN 2.9 gm/dl (3.1-4.5); ALKALINE PHOSPHATASE 129 U/L (45-117); CHLORIDE 101 mmol/L (98-107); CREATININE 0.46 mg/dL (0.55-1.02); POTASSIUM 5.5 mmol/L (3.5-5.1); SGOT/AST 38 IU/L (3-35); SGPT/ALT 38 U/L (12-78); SODIUM 139 mmol/L (136-145)
[2021-06-07 06:25] LABS: BUN 32 mg/dl (7-24)
== END 2021-06-07 13:29 | DRG 871 ==
LOC: ED 20:54 → EDHOLD 06-07 00:29
PROVIDERS: Internal Medicine; ADMIT Internal Medicine; ATTEND Internal Medicine
PROC: 5A09357 Assistance with Respiratory Ventilation, Less than 24 Consecutive Hours, Continuous Positive Airway Pressure (ICD-10-PCS; principal; 2021-06-07)
DX: A41.9 Sepsis, unspecified organism (principal); J18.9 Pneumonia, unspecified organism; R65.21 Severe sepsis with septic shock; E44.0 Moderate protein-calorie malnutrition; G12.21 Amyotrophic lateral sclerosis; E87.3 Alkalosis; Z66 Do not resuscitate; D75.89 Other specified diseases of blood and blood-forming organs; E87.5 Hyperkalemia; E83.41 Hypermagnesemia; R74.01 Elevation of levels of liver transaminase levels; I10 Essential (primary) hypertension; F41.9 Anxiety disorder, unspecified; R06.03 Acute respiratory distress; J41.0 Simple chronic bronchitis; Z68.20 Body mass index [BMI] 20.0-20.9, adult; Z51.5 Encounter for palliative care; Z90.710 Acquired absence of both cervix and uterus; Z90.49 Acquired absence of other specified parts of digestive tract; Z87.891 Personal history of nicotine dependence; Z79.51 Long term (current) use of inhaled steroids; Z79.82 Long term (current) use of aspirin; Z79.899 Other long term (current) drug therapy